=== PATIENT | female | born 1965 | race Caucasian/White ===

== ENCOUNTER 2017-01-05 14:36 | Emergency (ER) | payer BC ==
[2017-01-05 14:44] VITALS: BP 125/78; PULSE 92; RESP 18; TEMP 97.3; O2SAT 99
--- NOTE | 2017-01-05 15:30 | EDPHY ---
HPI/HX/ROS/PE/MDM Narrative: CHIEF COMPLAINT: Bilateral knee pain. HPI: The patient is a 51-year-old female who presents after tripping while walking on [address] an hour ago, complaining of bilateral knee pain. She was ambulatory after falling, with some difficulty. The pain does not radiate. She did hit her head and has a cheek abrasion but denies loss of consciousness. She denies dizziness, numbness, weakness, oral trauma, or other complaints. REVIEW OF SYSTEMS: Aside from elements discussed in the HPI, a comprehensive 10-point review of systems was reviewed and is negative. PMH: Denies. SOCIAL HISTORY: . PHYSICAL EXAM: General: Patient is alert, in no acute distress. Head: Abrasion to left cheek with no deformity. ENT: Eyes are normal to inspection. ENT inspection normal. Neck: Normal inspection. Full range of motion. Respiratory: No respiratory distress. Breath sounds normal bilaterally. Cardiovascular: Regular rate and rhythm. Strong peripheral pulses. Abdomen: The abdomen is nontender to palpation. There are no peritoneal signs. There are normal bowel sounds. Back: Normal to inspection. No tenderness to palpation. Skin: Normal color. No rash. Warm and dry. Extremities: Full range of motion. Left knee: 1 abrasion on anterior left knee. Right knee: 2 abrasions present on right knee with mild effusion. Tenderness to right patella. Neuro: Oriented x3. Normal motor function. Normal sensory function. Portions of this note were transcribed by an ED scribe. I personally performed the history, physical exam, and medical decision making; and confirm the accuracy of the information in the transcribed note. ED Course: Right knee x-ray ordered. Study: Right knee X-ray Indication: Trauma, pain Results: I viewed the images myself on the PACS system. The radiologist interpretation is: 1. Joint effusion with no acute osseous findings. 2. 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 MDM: This patient presents with abrasions to face and bilateral knees after mechanical fall. There is no evidence of fracture, dislocation or severe head injury. Wounds were dressed. Patient was advised regarding x-ray findings and need for follow-up. - Data Points Medications Given: Discontinued Medications Tetracaine/Epinephrine/Lidocaine (Lets Soln Topical) 1 ea TP EDNOW ONE Stop: 01/05/17 15:45 Last Admin: 01/05/17 15:44 Dose: 1 ea General Time Seen by Provider: 01/05/17 15:29 Initial Vital Signs: Initial Vital Signs Temperature (C) 36.3 C 01/05/17 14:41 Heart Rate 92 01/05/17 14:41 Respiratory Rate 18 01/05/17 14:41 Blood Pressure 125/78 H 01/05/17 14:41 O2 Sat (%) 99 01/05/17 14:41 O2 Delivery Mode Room Air Allergies/Adverse Reactions: No Known Allergies Allergy (Verified 01/05/17 14:44) Home Medications: Medication Instructions Recorded Bio-Identicals Hormones 01/05/17 buPROPion [Wellbutrin] 100 mg PO 01/05/17 Departure - Departure Disposition: Home, Routine, Self-Care Clinical Impression: Abrasion of knee, bilateral Abrasion of cheek Qualifiers: Encounter type: initial encounter Qualified Code(s): S00.81XA - Abrasion of other part of head, initial encounter Knee contusion Qualifiers: Encounter type: initial encounter Laterality: unspecified laterality Qualified Code(s): S80.00XA - Contusion of unspecified knee, initial encounter Condition: Good Instructions: Contusion in Adults (ED), Abrasion (ED) Additional Instructions: Keep abrasions clean with warm, soapy water. Take 600mg Ibuprofen every 6-8 hours as needed for pain for the next 3 days only. Follow up with Dr. Marinelli, orthopedics, if symptoms are not improving in the next 3-4 days. Return to the emergency department for any serious worsening of condition. Referrals: [facility] [Other] - As per Instructions Pedro Marinelli MD [Medical Doctor] - As per Instructions Report Scribed for: Bryn Ritchie Report Scribed by: Ramone Silverio Date of Report: 01/05/17 Time of Report: 15:29
[2017-01-05] MEDS ORDERED: LETS SOLN TOPICAL 1 EA SYR TP ONE ×2 (15:39→15:44)
== END 2017-01-05 17:05 | disposition home or self-care (01) ==
DX: S00.81XA Abrasion of other part of head, initial encounter (principal); S80.01XA Contusion of right knee, initial encounter; S80.212A Abrasion, left knee, initial encounter; S80.211A Abrasion, right knee, initial encounter; W01.198A Fall on same level from slipping, tripping and stumbling with subsequent striking against other object, initial encounter; Y92.410 Unspecified street and highway as the place of occurrence of the external cause; Y99.8 Other external cause status; Y93.01 Activity, walking, marching and hiking

== ENCOUNTER → 2017-02-04 | Outpatient (CLI) | payer BC | LOC: CIMAGING 13:07 | PROVIDERS: ATTEND Obstetrics & Gynecology Gynecology | DX: Z12.39 Encounter for other screening for malignant neoplasm of breast (principal); N63 Unspecified lump in breast | CPT/HCPCS: 76641-PO; G0204 ==